=== PATIENT | female | born 1990 | race Caucasian/White ===

== ENCOUNTER → 2020-05-19 | Outpatient (CLI) | payer OTHER ==
--- NOTE | 2020-05-20 04:28 | REP ---
INDICATION: ANATOMY COMPARISON: None. TECHNIQUE: Transabdominal obstetrical ultrasound with color Doppler evaluation. FINDINGS: Examination demonstrates a single live intrauterine in breech presentation. motion is identified by technologist. Placenta is noted posterior and grade 1 without evidence for placenta previa or abruption. Placental tip is 2.2 cm from the closed internal os. Amniotic fluid volume is normal. Cervix measures 3.8 cm in length and appears closed.. Gestational age by LMP 18 weeks 2 days with SINGH 10/18/2020. Gestational age by current measurements 18 weeks 5 days with SINGH 10/15/2020. FHR equals 158 beats per minute. BPD: 4.0 cm 18 weeks 1 day HC: 15.7 cm 18 weeks 4 days AC: 13.6 cm 19 weeks 0 days FL: 2.8 cm 18 weeks 4 days HL: 2.8 cm 19 weeks 0 days HC/AC: 1.16 Estimated weight 254 grams (72ndpercentile). Anatomical assessment demonstrates normal structures including cranium, choroid plexus, cavum, cerebellum/posterior fossa, facial features, lungs, four-chamber heart/ventricular outflow tracts, diaphragm, stomach, cord insertion/three-vessel cord, kidneys/bladder, and extremities. Limited evaluation of the spine due to positioning noted. IMPRESSION: 1. Single live intrauterine in breech presentation demonstrating appropriate interval growth. 2. Limited evaluation of the spine. Remainder of the anatomical assessment is complete and normal. 3. Posterior placenta measuring 2.2 cm from the closed internal os. <Electronically signed by Castro Vines > 05/20/20 [id number]
== END ==
LOC: M WHC 12:17
PROVIDERS: ATTEND Midwife
DX: Z34.92 Encounter for supervision of normal pregnancy, unspecified, second trimester (principal); Z3A.18 18 weeks gestation of pregnancy

== ENCOUNTER → 2020-05-29 | Outpatient (CLI) | payer OTHER ==
--- NOTE | 2020-05-29 17:35 | REP ---
INDICATION: F/U ANATOMY. COMPARISON: 05/19/2020. TECHNIQUE: Real-time sonographic evaluation of the gravid uterus performed. FINDINGS: Estimated gestational age is19 weeks 5 days, EDC 10/18/2020. Today's measurements indicate appropriate growth. Presentation: Breech Placenta posterior, grade 1, without evidence of placenta previa. heart rate is recorded at 155 beats per minute. Amniotic fluid is subjectively normal. Closed cervical length is measured at 3.4 cm. Biometry chart: BPD: 44 mm, 19 weeks 3 days, 42nd percentile. HC: 173 mm, 19 weeks 6 days, 55th percentile AC: 155 mm, 20 weeks 4 days, 70th percentile Femur length: 31 mm, 19 weeks 4 days, 48th percentile HC to AC ratio: 1.12, normal range 1.06-1.25. Estimated weight: 332g, 69th percentile. anatomy: Cranium: Grossly normal Four chamber heart: Grossly normal Right ventricular outflow tract: Grossly normal Left ventricular outflow tract: Grossly normal Left-sided stomach: Grossly normal Bladder: Grossly normal Cord Insertion: Grossly normal 3 vessel cord: Grossly normal Spine: Once again not well visualized due to position. IMPRESSION: Viable single intrauterine gestation as above. <Electronically signed by Ed Hendricks > 05/29/20 [id number]
== END ==
LOC: M WHC 15:39
PROVIDERS: ATTEND Licensed Practical Nurse
DX: O32.1XX0 Maternal care for breech presentation, not applicable or unspecified (principal); Z36.2 Encounter for other antenatal screening follow-up; Z3A.19 19 weeks gestation of pregnancy

== ENCOUNTER 2020-10-05 23:14 | Outpatient (CLI) | payer OTHER ==
[2020-10-05 23:39] VITALS: BP 136/75
[2020-10-06 00:08] LABS: APPEARANCE, URINE CLEAR (CLEAR); BACTERIA, URINE AUTO NEGATIVE (NEGATIVE); BILIRUBIN, URINE AUTO NEGATIVE (NEGATIVE); BLOOD, URINE BLOOD NEGATIVE (NEGATIVE); COLOR, URINE YELLOW (YELLOW); GLUCOSE, URINE (UA) AUTO NEGATIVE (NEGATIVE); KETONE, URINE AUTO NEGATIVE (NEGATIVE); LEUKOCYTE ESTERASE, URINE AUTO NEGATIVE (NEGATIVE); MUCUS, URINE SMALL (NEGATIVE); NITRITE, URINE AUTO NEGATIVE (NEGATIVE); PROTEIN, URINE AUTO NEGATIVE (NEGATIVE); RBC, URINE AUTO 0 /HPF (0-3); SPECIFIC GRAVITY URINE AUTO 1.009 (1.002-1.035); SQUAMOUS EPITHELIAL CELL UR AU 1 /HPF (0-6); UROBILINOGEN, URINE AUTO 0.2 mg/dL (0.0-2.0); WBC, URINE AUTO 1 /HPF (0-3)
--- NOTE | 2020-10-06 01:04 | IPNPDOC ---
Text Note Date of Service The patient was seen on 10/06/20. NOTE Subjective: Paty is a 29-year-old female who is a at 38.2 weeks gestation with an SINGH of 10/18/20. She is being cared for by Jose Juan Doan CNM for a home . Her has been uncomplicated. She presents to L&D with complaints of a localized area in her back, on her spine that occasionally feels like it is throbbing at times. Reports it tends to be associated with changes in her emotions or BP. She currently denies feeling this right now. She is concerned of having an aneurysm in her back. Reports family history of vascular issues. States she has no numbness in her feet, able to move her legs without restrictions. Reports active movement. Denies contractions, leaking of fluid or vaginal bleeding. Patient refuses cervical exam. PMHx: inguinal hernia SHx: wisdom teeth extraction FHx: Maternal cousin with aneurysm, Maternal grandmother stroke; paternal aunt with defibrillator Social Hx: , no history of smoking, alcohol use or drug use; no history of STDs; no history of abuse OBHx: -12/16/14 at 42.1 weeks gestation, , epidural, female 6 lbs 15 oz -11/20/16 at 41 weeks, , female 8 lbs 11 oz Objective: FHR: 120, moderate variability, positive accelerations, no decelerations. [place]: contractions irregular General: Alert and oriented. No apparent distress. Respiratory: regular rate with no use of accessory muscles Abdomen: soft and non-tender to palpation. Musculoskeletal (back): no pain with palpation Extremities: no edema. Assessment: IUP at 38.2 weeks gestation, occasional local back pain Plan: Reviewed typical signs of aneurysm. Patient discharged to home with precautions. Reviewed kick count, labor signs, and danger signs to report. VS,Fishbone, I+O VS, Fishbone, I+O Vital Signs Date Time Temp Pulse Resp B/P (MAP) Pulse Ox O2 Delivery O2 Flow Rate FiO2 10/05/20 23:39 97.6 84 16 136/75 (95) 100 DEANDRE SALGADO CNM Oct 06, 2020 01:04
== END 2020-10-06 01:10 | disposition home or self-care (01) ==
LOC: M LDO 23:14
PROVIDERS: ATTEND Advanced Practice Midwife
DX: O26.893 Other specified pregnancy related conditions, third trimester (principal); Z3A.38 38 weeks gestation of pregnancy

== ENCOUNTER 2022-01-25 17:31 | Emergency (ER) | payer OTHER ==
[~2022-01-25] VITALS: Ht 165.1 cm; Wt 61.4 kg
[2022-01-25 19:16] LABS: BASO % 0.5 % (0.0-1.0); EOS % 0.5 % (0.0-3.0); HEMATOCRIT 38.1 % (36.0-47.0); HEMOGLOBIN 12.6 g/dl (12.0-15.5); LYMPH # 0.9 10^3/uL (1.5-5.0); LYMPH % 10.3 % (24.0-44.0); MEAN CORPUSCULAR HEMOGLOBIN 30.6 pg (27.0-33.0); MEAN CORPUSCULAR HGB CONC 33.1 g/dl (32.0-36.5); MEAN CORPUSCULAR VOLUME 92.5 fl (80.0-96.0); MONO # 0.4 10^3/uL (0.0-0.8); MONO % 4.1 % (2.0-8.0); NEUTROPHILS # 7.4 10^3/uL (1.5-8.5); NEUTROPHILS % 84.3 % (36.0-66.0); PLATELET COUNT, AUTOMATED 237 10^3/uL (150-450); RED BLOOD COUNT 4.12 10^6/uL (4.00-5.40); WHITE BLOOD COUNT 8.8 10^3/uL (4.0-10.0)
[2022-01-25 19:39] LABS: BLOOD UREA NITROGEN 13 MG/DL (7-18); CALCIUM LEVEL 9.2 MG/DL (8.5-10.1); CARBON DIOXIDE LEVEL 25 MEQ/L (21-32); CHLORIDE LEVEL 110 MEQ/L (98-107); GLOMERULAR FILTRATION RATE > 60.0 (>60); GLUCOSE, FASTING 115 MG/DL (70-100); POTASSIUM SERUM 3.8 MEQ/L (3.5-5.1); SODIUM LEVEL 142 MEQ/L (136-145)
[2022-01-25 20:01] LABS: FREE T4 0.97 NG/DL (0.76-1.46); THYROID STIMULATING HORMONE 0.649 uIU/ML (0.358-3.740)
[2022-01-25 21:07] LABS: HCG, SERUM QUANTITATIVE < 1.0 MIU/ML
[2022-01-25 23:11] VITALS: BP 135/78
== END 2022-01-25 23:12 | disposition home or self-care (01) ==
LOC: M ED 17:31
DX: R55 Syncope and collapse (principal)

== ENCOUNTER → 2022-06-07 | Outpatient (CLI) | payer OTHER | LOC: M WHC 13:19 | PROVIDERS: ATTEND Midwife | DX: Z34.80 Encounter for supervision of other normal pregnancy, unspecified trimester (principal); Z3A.20 20 weeks gestation of pregnancy ==